=== PATIENT | female | born 1960 | race Caucasian/White ===

== ENCOUNTER → 2023-08-18 06:25 | Day surgery (SDC) | payer BC, SELFPAY | LOC: GI 06:25 | PROVIDERS: ATTENDING PHYSICIAN Internal Medicine Gastroenterology; FAMILY PHYSICIAN Family Medicine | DX: Z12.11 Encounter for screening for malignant neoplasm of colon (principal); Z80.0 Family history of malignant neoplasm of digestive organs; K57.30 Diverticulosis of large intestine without perforation or abscess without bleeding; K64.0 First degree hemorrhoids; D12.2 Benign neoplasm of ascending colon; D12.8 Benign neoplasm of rectum; K63.5 Polyp of colon | CPT/HCPCS: 45380; 88305 ==

== ENCOUNTER → 2024-01-11 16:22 | Outpatient (REF) | payer BC, SELFPAY ==
[2024-01-11 16:38] LABS: % Eosinophils 2.4 % (0-6); % Immature Granulocytes 0.2 % (0-0.5); % Lymphocytes 41.7 % (20.5-51.1); % Monocytes 6.4 % (1.7-9.3); % Neutrophils 48.3 % (42.2-75.2); Absolute Basophils 0.1 10^3/uL (0-0.2); Absolute Eosinophils 0.1 10^3/uL (0-0.7); Absolute Lymphocytes 2.1 10^3/uL (1.2-3.4); Absolute Monocytes 0.3 10^3/uL (0.1-0.6); Absolute Neutrophils 2.4 10^3/uL (1.4-6.5); Hematocrit 39.3 % (37.0-47.0); Hemoglobin 13.4 g/dL (12.0-16.0); Mean Corp Hgb Conc. 34.1 g/dL (33.0-37.0); Mean Corpuscular Hgb 30.5 pg (27.0-31.0); Mean Corpuscular Volume 89.5 fL (81.0-99.0); Mean Platelet Volume 9.3 fL (7.4-10.4); Nucleated Red Blood Cells % 0 %; Platelet Count 211 10^3/uL (130-400); Red Blood Cell Count 4.39 10^6/uL (4.20-5.40); Red Cell Dist. Width 12.5 % (11.5-14.5)
[2024-01-11 17:00] LABS: Blood Urea Nitrogen 18 mg/dl (7-17); Calcium 10.3 mg/dl (8.4-10.2); Carbon Dioxide 29 mmol/L (22-30); Chloride 102 mmol/L (98-107); Glucose 97 mg/dl (70-99); Potassium 4.7 mmol/L (3.5-5.1); Sodium 138 mmol/L (135-145); eGFR > 60.00
== END ==
LOC: REG 16:22
PROVIDERS: ATTENDING PHYSICIAN Specialist; FAMILY PHYSICIAN Family Medicine
DX: Z01.818 Encounter for other preprocedural examination (principal)
CPT/HCPCS: 36415; 80048; 85025; 93005

== ENCOUNTER → 2024-05-12 10:59 | Outpatient (REF) | payer BC, SELFPAY | LOC: WDC 10:59 | PROVIDERS: ATTENDING PHYSICIAN Obstetrics & Gynecology; FAMILY PHYSICIAN Family Medicine | DX: R92.8 Other abnormal and inconclusive findings on diagnostic imaging of breast (principal) | CPT/HCPCS: 77062; 77066 ==

== ENCOUNTER → 2024-07-29 15:34 | Outpatient (REF) | payer BC, SELFPAY | LOC: WDC 15:34 | PROVIDERS: ATTENDING PHYSICIAN Obstetrics & Gynecology Gynecology; FAMILY PHYSICIAN Family Medicine | DX: Z12.31 Encounter for screening mammogram for malignant neoplasm of breast (principal) | CPT/HCPCS: 77063; 77067 ==

== ENCOUNTER 2025-04-15 22:01 | Emergency (ER) | payer BC, SELFPAY ==
[2025-04-15 22:08] VITALS: BP 135/76
--- NOTE | 2025-04-15 23:23 | ED.SKININJ ---
HPI-Injury
General
Chief Complaint: Skin Surface Trauma
Source: patient
Exam Limitations: none
Time Seen by Provider: 04/15/25 23:16
Nursing documentation reviewed up to this point in time: agreed with
History of Present Illness-Injury
Initial Injury comments:
65-year-old female with a past medical history states she reached into her car and scraped the left third finger on the metal part of the open door causing a wound that she has been cleansing daily and applying a Band-Aid.
She states when she showed her the wound tonight he said 'Oh you better go get that checked out.' She is up-to-date with her tetanus immunization.
She denies any bony pain.
She does admit that she has been playing tennis and not resting and protecting the finger as she should.
Past History
Past History
ED Past Medical History: None
ED Past Surgical History: Orthopedic
Social History
Tobacco: Non-smoker
Personal:
Living: with family
Review of Systems
Review of Systems
Allergies reviewed?: Yes
All Other Systems: ROS reviewed and negative except as documented in HPI and ROS
Phy Exam
Physical Exam
Physical Exam:
PHYSICAL EXAMINATION:
General: no apparent distress, not acutely ill
Neuro: alert and oriented.
Psychiatric: well kept. interactive and cooperative
Musculoskeletal: Moves with ease
Skin: Warm, pink. Deep clean vertical abrasion on the ulnar aspect of the left finger beside but not including the nail down to the PIP joint. The finger has good range of motion, no indication of tendon damage. There is no
bony tenderness to palpation. Distal neurovascular intact. Mild bruising between DIP and PIP joint
Course
Vital Signs
Initial and Last Documented VS:
Initial Vital Signs
Temp Pulse Resp BP Pulse Ox
98.0 F 60 16 135/76 97
04/15/25 22:08 04/15/25 22:08 04/15/25 22:08 04/15/25 22:08 04/15/25 22:08
Last Documented Vital Signs
Temp Pulse Resp BP Pulse Ox
98.0 F 60 16 135/76 97
04/15/25 22:08 04/15/25 22:08 04/15/25 22:08 04/15/25 22:08 04/15/25 23:28
MDM/Problems Addressed
Differential Diagnosis Includes:
Contusion, abrasion, laceration, fracture, tendon injury
MDM/Problems Addressed:
65-year-old female with a past medical history states she reached into her car and scraped the left third finger on the metal part of the open door causing a wound that she has been cleansing daily and applying a Band-Aid.
She states when she showed her the wound tonight he said 'Oh you better go get that checked out.' She is up-to-date with her tetanus immunization.
She denies any bony pain.
She does admit that she has been playing tennis and not resting and protecting the finger as she should.
There is a deep clean vertical abrasion on the ulnar aspect of the left finger beside but not including the nail down to the PIP joint. The finger has good range of motion, no indication of tendon damage. There is no bony tenderness to palpation.
No indication for imaging.
This is a deep clean abrasion
The wound edges are macerated from moisture, the wound appears to be 1 cm deep, it should heal well by secondary intention.
Wound cleansed, Band-Aid applied, aluminum helmet splint applied for protection.
*Pulse Oximetry
SaO2: 97
Oxygen Mode of Delivery: Room air
Patient hypoxic: not evaluated
*Critical Care Note
Total Time (30-74mins, 75-104mins- exclusive of procedures): Not Applicable
ED Attending Note
-
Portions of this chart may have been created with voice recognition software.� Occasional wrong word or��sound alike� substitutions may have occurred due to the inherent limitations of voice recognition software.
Discharge Plan
Departure
Patient Disposition: Home (Routine Discharge)
Date of Disposition: 04/15/25
Time of Disposition: 23:28
Patient with high blood pressure during this ER visit?: No
Condition: Good
Discharge Problem:
Abrasion of left ring finger
Instructions: Taking care of cuts, scrapes, and puncture wounds
Referrals:
Flash Liz DO [Family Provider, [facility]] - As needed
Activity Restrictions/Additional Instructions:
As we discussed, cleanse the wound daily, allow it to air dry very well or blow it dry, apply a thin layer of antibiotic ointment, Band-Aid and the aluminum finger splint for protection.
When you are resting, leave the wound open to the air so it can dry out.
Seek medical care immediately if you note signs of infection which may include increasing pain, redness, swelling, pus drainage, red streak up the arm or fever.
Avoid overusing the hand/finger or it will take longer to heal
This area takes about 2 to 3 weeks to heal.
Interventions
Interventions:
*Risk Screen - Suicide Last Done: 04/15/25 22:08
*General Assessment Last Done: 04/15/25 22:08
*Neglect/Abuse Screening Last Done: 04/15/25 22:08
*ED- Fall Risk Assessment Last Done: 04/15/25 22:08
*ED COVID-19 Vaccine History Last Done: 04/15/25 22:08
Discharge Date and Time
Print Language: MICRONESIAN
== END 2025-04-15 23:45 | disposition home or self-care (01) ==
LOC: EMR 22:01
PROVIDERS: EMERGENCY PHYSICIAN Emergency Medicine; FAMILY PHYSICIAN Family Medicine
DX: S60.415A Abrasion of left ring finger, initial encounter (principal); W22.09XA Striking against other stationary object, initial encounter
CPT/HCPCS: 99282